=== PATIENT | male | born 1995 | race African-American/Black ===

== ENCOUNTER 2023-12-11 12:15 | Emergency (ER) | payer MEDICAID ==
[~2023-12-11] VITALS: Ht 182.9 cm; Wt 85.0 kg
[2023-12-11 12:18] VITALS: BP 130/90; PULSE 72; RESP 22; TEMP 98.3; O2SAT 98
== END 2023-12-11 12:30 | disposition home or self-care (01) ==
LOC: ER 12:15
DX: F98.9 Unspecified behavioral and emotional disorders with onset usually occurring in childhood and adolescence (principal)
CPT/HCPCS: 99283